=== PATIENT | male | born 1945 | race Hispanic/Latino ===

== ENCOUNTER 2020-02-03 21:49 | Emergency (ER) | payer OTHER ==
[~2020-02-03 21:49] MED LIST: ASPI-1005 PO; ATOR40TA69 PO; CARV3.1262 PO; FURO20TA6 PO; LOSA50TA2 PO
[2020-02-03 22:16] LABS: BASOPHILS % (AUTO) 0.6 % (0.0-5.0); EOSINOPHILS % (AUTO) 4.8 % (0.0-8.0); HEMATOCRIT 31.3 % (42-54); LYMPHOCYTES % (AUTO) 20.8 % (21.0-51.0); MEAN CORPUSCULAR HEMOGLOBIN 33.9 pg (27.0-33.0); MEAN CORPUSCULAR HGB CONC 35.8 g/dL (32.0-36.0); MEAN CORPUSCULAR VOLUME 94.8 fL (79-99); MONOCYTES % (AUTO) 8.2 % (3.0-13.0); NEUTROPHILS % (AUTO) 65.3 % (40.0-77.0); PLATELET COUNT (AUTO) 112 K/uL (130-400); RED CELL DISTRIBUTION WIDTH 12.5 % (11.0-15.5); WHITE BLOOD COUNT (AUTO) 6.2 K/uL (4.8-10.8)
[2020-02-03 22:33] LABS: CREATININE 1.9 mg/dL (0.5-1.5); INR 0.99 (0.85-1.15); PARTIAL THROMBOPLASTIN TIME 31.5 SEC (26.3-35.5); POTASSIUM 3.8 mmol/L (3.5-5.1); PROTHROMBIN TIME 10.7 SEC (9.6-11.6)
[2020-02-03 22:38] LABS: ALBUMIN 3.3 g/dL (3.5-5.0); BILIRUBIN,TOTAL 0.3 mg/dL (0.2-1.0); TOTAL PROTEIN, SERUM 6.6 g/dL (6.0-8.3)
[2020-02-03 22:45] LABS: B-TYPE NATRIURETIC PEPTIDE 306 pg/mL (0-100)
[2020-02-03] MEDS ORDERED: METHYLPREDNISOLONE SOD SUCC 125MG/2ML VIAL ONE (22:52)
[2020-02-03] MEDS ORDERED: IPRATROPIUM/ALBUTEROL SULFATE 3 ML SOLUTION IH ONE (23:07)
== END 2020-02-04 00:12 | disposition home or self-care (01) ==
LOC: EDH 21:49
DX: J44.1 Chronic obstructive pulmonary disease with (acute) exacerbation (principal); E11.9 Type 2 diabetes mellitus without complications; I10 Essential (primary) hypertension; E78.00 Pure hypercholesterolemia, unspecified; F41.9 Anxiety disorder, unspecified; F32.9 Major depressive disorder, single episode, unspecified; I25.2 Old myocardial infarction; Z87.891 Personal history of nicotine dependence
CPT/HCPCS: 36415; 71045; 80053; 82550; 83880; 84484; 85025; 85610; 85730; 93005; 94640; 96374; 99285; J2930

== ENCOUNTER 2022-12-21 13:07 | Emergency (ER) | payer OTHER ==
[~2022-12-21] VITALS: Ht 177.8 cm; Wt 75.3 kg
[2022-12-21] MEDS ORDERED: 0.9%NACL 1000ML 1,000 ML IV ONE (14:00)
[2022-12-21 14:24] LABS: BASOPHILS % (AUTO) 0.5 % (0.0-5.0); EOSINOPHILS % (AUTO) 8.3 % (0.0-8.0); HEMATOCRIT 33.8 % (42-54); LYMPHOCYTES % (AUTO) 27.6 % (21.0-51.0); MEAN CORPUSCULAR HEMOGLOBIN 32.1 pg (27.0-33.0); MEAN CORPUSCULAR HGB CONC 33.4 g/dL (32.0-36.0); MONOCYTES % (AUTO) 7.6 % (3.0-13.0); NEUTROPHILS % (AUTO) 55.5 % (40.0-77.0); PLATELET COUNT (AUTO) 109 K/uL (130-400); RED BLOOD CELL COUNT(AUTO) 3.52 MIL/uL (4.50-6.20); RED CELL DISTRIBUTION WIDTH 12.1 % (11.0-15.5); WHITE BLOOD COUNT (AUTO) 5.6 K/uL (4.8-10.8)
[2022-12-21 14:34] LABS: CREATININE 1.9 mg/dL (0.5-1.5); POTASSIUM 4.2 mmol/L (3.5-5.1)
[2022-12-21 14:38] LABS: INR 1.04 (0.85-1.15); PROTHROMBIN TIME 11.3 SEC (9.6-11.6)
[2022-12-21 14:40] LABS: PARTIAL THROMBOPLASTIN TIME 30.2 SEC (26.3-35.5)
[2022-12-21 14:42] LABS: B-TYPE NATRIURETIC PEPTIDE 226 pg/mL (0-100)
[2022-12-21 14:43] LABS: ALBUMIN 3.6 g/dL (3.5-5.0); TOTAL PROTEIN, SERUM 6.7 g/dL (6.0-8.3)
[2022-12-21] MEDS ORDERED: IOHEXOL 350 MG/ML 100ML INFUS..BTL IV ONE (16:10)
[2022-12-21 18:24] VITALS: BP 122/68
== END 2022-12-21 18:35 | disposition home or self-care (01) ==
LOC: EDH 13:07
DX: H53.8 Other visual disturbances (principal); I10 Essential (primary) hypertension; E78.00 Pure hypercholesterolemia, unspecified; E11.9 Type 2 diabetes mellitus without complications; I48.91 Unspecified atrial fibrillation; Z79.899 Other long term (current) drug therapy
CPT/HCPCS: 99285; 70496; 96360; 92610; 71045; 82550; 83721; 84484; 80053; 83880; 85025; 85610; 85730; 36415; 70498; 93005; 70450; J7030; Q9967

== ENCOUNTER 2023-08-22 12:32 | Inpatient (IN) | payer OTHER ==
[~2023-08-22] VITALS: Ht 167.6 cm; Wt 68.8 kg
[~2023-08-22 12:32] MED LIST changes: +AMIODARONE 150MG VIAL IV ONE; +APIX5TAB PO; -ASPI-1005 PO; -ATOR40TA69 PO; +CACL 1GM SYG IVP ONE; -CARV3.1262 PO; +CYAN100T45 PO; +EMPA10TA PO; +EPINEPHRINE 1MG/10ML(1:10,000) 0.1 MG/ML SYG IVP ONE; +ETOMIDATE 20MG VIAL IVP ONE; +FURO20TA4 PO; -FURO20TA6 PO; +GABA-529 PO; +LIDOCAINE PF 100MG/5ML (2%) SYRINGE 5ML IVP ONE; +LINA5TAB PO; -LOSA50TA2 PO; +LURA20TA PO; +LURA40TA4 PO; +METO-408 PO; +METO25TA6 PO; +POTA-364 PO; +ROSU20TA73 PO; +ROSU40TA21 PO; +SODIUM BICARB 8.4% 50ML SYRINGE IVP ONE; +SUCCINYLCHOLINE CHLORIDE 20 MG/ML 10 ML VIAL IVP ONE
[2023-08-22 14:08] LABS: BASOPHILS # (AUTO) 0.02 K/uL (0.00-0.20); BASOPHILS % (AUTO) 0.2 % (0.0-5.0); EOSINOPHILS # (AUTO) 0.04 K/uL (0.00-0.70); EOSINOPHILS % (AUTO) 0.5 % (0.0-8.0); HEMATOCRIT 43.3 % (42-54); IMMATURE GRANULOCYTE ABSOLUTE 0.04 K/uL (0-1); LYMPHOCYTES # (AUTO) 1.1 K/uL (1.0-4.8); LYMPHOCYTES % (AUTO) 13.8 % (21.0-51.0); MEAN CORPUSCULAR HGB CONC 30.9 g/dL (32.0-36.0); MEAN CORPUSCULAR VOLUME 100.2 fL (79-99); MONOCYTES # (AUTO) 0.3 K/uL (0.1-1.0); MONOCYTES % (AUTO) 3.3 % (3.0-13.0); NEUTROPHILS # (AUTO) 6.6 K/uL (1.8-7.7); NEUTROPHILS % (AUTO) 81.7 % (40.0-77.0); PLATELET COUNT (AUTO) 195 K/uL (130-400); RED BLOOD CELL COUNT(AUTO) 4.32 MIL/uL (4.50-6.20); RED CELL DISTRIBUTION WIDTH 18.5 % (11.0-15.5); WHITE BLOOD COUNT (AUTO) 8.1 K/uL (4.8-10.8)
[2023-08-22 14:37] LABS: B-TYPE NATRIURETIC PEPTIDE 3300 pg/mL (0-100)
[2023-08-22 14:45] LABS: ALBUMIN 2.6 g/dL (3.5-5.0); BILIRUBIN,TOTAL 1.8 mg/dL (0.2-1.0); CREATININE 1.6 mg/dL (0.5-1.5); POTASSIUM 4.4 mmol/L (3.5-5.1); TOTAL PROTEIN, SERUM 8.7 g/dL (6.0-8.3)
[2023-08-22] MEDS ORDERED: ASPIRIN 325MG EC TAB PO ONE (15:00)
[2023-08-22] MEDS ORDERED: FUROSEMIDE 20MG VIAL IV ONE (15:00)
[2023-08-22] MEDS ORDERED: LACTULOSE 20 GM/30 ML UDCUP PO PRN (17:00)
[2023-08-22] MEDS ORDERED: GUAIFENESIN-DM 200/20 MG 10 ML PO PRN (17:00)
[2023-08-22] MEDS ORDERED: ONDANSETRON 4MG INJ IV PRN (17:00)
[2023-08-22] MEDS ORDERED: ACETAMINOPHEN WITH CODEINE 1 TAB TAB PO PRN (17:00)
[2023-08-22] MEDS ORDERED: DIPHENHYDRAMINE HCL 25 MG CAPSULE PO PRN (17:00)
[2023-08-22] MEDS ORDERED: MAG/ALUM/SIMETH 30 ML UDCUP PO PRN (17:00)
[2023-08-22] MEDS ORDERED: NITROGLYCERIN 0.4 MG SL TAB SL PRN (17:00)
[2023-08-22] MEDS ORDERED: ACETAMINOPHEN 325 MG TAB PO PRN (17:00)
[2023-08-22] MEDS ORDERED: GLIP10TA9 PO (17:22)
[2023-08-22] MEDS ORDERED: SPIR25TA6 PO (17:22)
[2023-08-22 17:29] LABS: HEMOGLOBIN A1C 7.4 % (4.0-6.0)
[2023-08-22] MEDS ORDERED: GLUCAGON 1MG KIT 1 MG ML IM PRN (17:30)
[2023-08-22 18:23] LABS: APPEARANCE,URINE CLEAR (CLEAR); BILIRUBIN,URINE NEGATIVE (NEGATIVE); COLOR,URINE LIGHT-YELLOW (YELLOW); GLUCOSE, URINE (UA) >=1000 mg/dL (NEGATIVE); KETONES,URINE 5 mg/dL (NEGATIVE); LEUKOCYTE ESTERASE ,URINE NEGATIVE Leu/uL (NEGATIVE); NITRATE,URINE NEGATIVE (NEGATIVE); OCCULT BLOOD,URINE NEGATIVE (NEGATIVE); PH,URINE 6.5 (5.0-8.0); PROTEIN,URINE NEGATIVE (NEGATIVE)
[2023-08-22 18:24] LABS: ADD UA MICROSCOPIC YES
[2023-08-22 18:25] LABS: RBC,URINE 0-1 /HPF (0-1); SQUAMOUS EPITHELIAL CELL,UR RARE /HPF (0-2); WBC,URINE 0-1 /HPF (0-1)
[2023-08-22] MEDS ORDERED: NON-FORMULARY MEDICATION 1 EACH (Potassium Chloride 20 MEQ) PO SCH (21:00)
[2023-08-22] MEDS: INSULIN HUMULIN R 100 UNIT/ML 3ML SQ SCH (21:00)
[2023-08-22] MEDS: GABAPENTIN 100 MG CAPSULE PO SCH (21:34)
[2023-08-22] MEDS: KCL 20 MEQ ERTAB PO SCH (21:34)
[2023-08-22] MEDS: FAMOTIDINE 20MG VIAL IV SCH (21:35)
[2023-08-22] MEDS: FUROSEMIDE 40MG VIAL IVP SCH (21:35)
[2023-08-22] MEDS: APIXABAN 5 MG TABLET PO SCH (21:35)
[2023-08-23] MEDS: INSULIN HUMULIN R 100 UNIT/ML 3ML SQ SCH ×4 (07:30→21:06)
[2023-08-23] MEDS: GLIPIZIDE 5 MG TABLET PO SCH (09:54)
[2023-08-23] MEDS: KCL 20 MEQ ERTAB PO SCH ×2 (09:54→21:03)
[2023-08-23] MEDS: GABAPENTIN 100 MG CAPSULE PO SCH ×3 (09:55→21:04)
[2023-08-23] MEDS: FUROSEMIDE 40MG VIAL IVP SCH (09:55)
[2023-08-23] MEDS: LINAGLIPTIN 5 MG TABLET PO SCH (09:55)
[2023-08-23] MEDS: METOPROLOL SUCCINATE 25 MG TAB.SR.24H PO SCH (09:55)
[2023-08-23] MEDS: SPIRONOLACTONE 25 MG TAB PO SCH (09:55)
[2023-08-23] MEDS: APIXABAN 5 MG TABLET PO SCH ×2 (09:56→21:04)
[2023-08-23 10:29] LABS: CREATININE 1.6 mg/dL (0.5-1.5); POTASSIUM 3.9 mmol/L (3.5-5.1)
[2023-08-23] MEDS ORDERED: CIPROFLOXACIN HCL 0.3% 2.5ML DROPS OU SCH (12:00)
[2023-08-23] MEDS: MOXIFLOXACIN HCL 0.5% 3ML DROPS OU SCH ×2 (12:15→21:07)
[2023-08-23] MEDS: MILRINONE-D5W 20 MG/100 ML 100 ML IV SCH (13:29)
[2023-08-23] MEDS ORDERED: MOXIFLOXACIN HCL 0.5% 3ML DROPS OU SCH ×2 (14:00)
[2023-08-23 20:00] VITALS: BP 97/58; PULSE 94; RESP 22; O2SAT 92
[2023-08-23] MEDS: FAMOTIDINE 20MG VIAL IV SCH (21:03)
[2023-08-23] MEDS: FUROSEMIDE 20MG VIAL IVP SCH (21:03)
[2023-08-24] VITALS (9 sets, daily range): BP systolic 97–130; BP diastolic 40–85; PULSE 60–80; RESP 14–19; O2SAT 95–97
[2023-08-24] MEDS: INSULIN HUMULIN R 100 UNIT/ML 3ML SQ SCH ×4 (07:30→21:16)
[2023-08-24] MEDS: MOXIFLOXACIN HCL 0.5% 3ML DROPS OU SCH ×3 (09:00→21:21)
[2023-08-24] MEDS: KCL 20 MEQ ERTAB PO SCH ×2 (09:00→21:14)
[2023-08-24] MEDS: FUROSEMIDE 20MG VIAL IVP SCH (09:51)
[2023-08-24] MEDS: SPIRONOLACTONE 25 MG TAB PO SCH (09:51)
[2023-08-24] MEDS: LINAGLIPTIN 5 MG TABLET PO SCH (09:51)
[2023-08-24] MEDS: METOPROLOL SUCCINATE 25 MG TAB.SR.24H PO SCH (09:51)
[2023-08-24] MEDS: APIXABAN 5 MG TABLET PO SCH ×2 (09:51→21:14)
[2023-08-24] MEDS: EMPAGLIFLOZIN 10MG TABLET PO SCH (09:51)
[2023-08-24] MEDS: GABAPENTIN 100 MG CAPSULE PO SCH ×3 (09:51→21:15)
[2023-08-24] MEDS: GLIPIZIDE 5 MG TABLET PO SCH (09:52)
[2023-08-24 09:59] LABS: HEMATOCRIT 32.8 % (42-54); MEAN CORPUSCULAR HEMOGLOBIN 32.3 pg (27.0-33.0); MEAN CORPUSCULAR HGB CONC 31.7 g/dL (32.0-36.0); MEAN CORPUSCULAR VOLUME 101.9 fL (79-99); RED BLOOD CELL COUNT(AUTO) 3.22 MIL/uL (4.50-6.20); RED CELL DISTRIBUTION WIDTH 17.5 % (11.0-15.5); WHITE BLOOD COUNT (AUTO) 9.5 K/uL (4.8-10.8)
[2023-08-24 10:20] LABS: CREATININE 1.9 mg/dL (0.5-1.5); POTASSIUM 4.2 mmol/L (3.5-5.1)
[2023-08-24 10:28] LABS: ALBUMIN 2.1 g/dL (3.5-5.0); MAGNESIUM 2.8 mg/dL (1.80-2.40); TOTAL PROTEIN, SERUM 6.6 g/dL (6.0-8.3)
[2023-08-24] MEDS: MILRINONE-D5W 20 MG/100 ML 100 ML IV SCH (12:13)
[2023-08-24] MEDS: FAMOTIDINE 20MG VIAL IV SCH (21:14)
[2023-08-25] VITALS (78 sets, daily range): BP systolic 32–170; BP diastolic 15–97; PULSE 65–121; RESP 16–29; O2SAT 95–100
[2023-08-25 03:58] LABS: HEMATOCRIT 33.5 % (42-54); MEAN CORPUSCULAR HEMOGLOBIN 31.4 pg (27.0-33.0); MEAN CORPUSCULAR HGB CONC 30.7 g/dL (32.0-36.0); MEAN CORPUSCULAR VOLUME 102.1 fL (79-99); RED BLOOD CELL COUNT(AUTO) 3.28 MIL/uL (4.50-6.20); RED CELL DISTRIBUTION WIDTH 17.4 % (11.0-15.5); WHITE BLOOD COUNT (AUTO) 8.2 K/uL (4.8-10.8)
[2023-08-25 04:18] LABS: ALBUMIN 2.1 g/dL (3.5-5.0); BILIRUBIN,TOTAL 0.7 mg/dL (0.2-1.0); POTASSIUM 4.1 mmol/L (3.5-5.1); TOTAL PROTEIN, SERUM 6.7 g/dL (6.0-8.3)
[2023-08-25] MEDS: INSULIN HUMULIN R 100 UNIT/ML 3ML SQ SCH ×4 (05:45→20:19)
[2023-08-25] MEDS: GLIPIZIDE 5 MG TABLET PO SCH (07:30)
[2023-08-25] MEDS: METOPROLOL SUCCINATE 25 MG TAB.SR.24H PO SCH (08:48)
[2023-08-25] MEDS: LINAGLIPTIN 5 MG TABLET PO SCH (08:48)
[2023-08-25] MEDS: KCL 20 MEQ ERTAB PO SCH (08:48)
[2023-08-25] MEDS: EMPAGLIFLOZIN 10MG TABLET PO SCH (08:49)
[2023-08-25] MEDS: GABAPENTIN 100 MG CAPSULE PO SCH ×2 (08:49→14:00)
[2023-08-25] MEDS: APIXABAN 5 MG TABLET PO SCH (08:49)
[2023-08-25] MEDS: SPIRONOLACTONE 25 MG TAB PO SCH (08:49)
[2023-08-25] MEDS: MOXIFLOXACIN HCL 0.5% 3ML DROPS OU SCH ×3 (08:51→20:19)
[2023-08-25] MEDS ORDERED: FUROSEMIDE 40 MG TABLET PO SCH (09:00)
[2023-08-25] MEDS ORDERED: NOREPINEPHRIN 4MG/NS 250ML 250 ML IV ONE (13:20)
[2023-08-25 13:48] LABS: ABG BASE EXCESS -0.1 mmol/L (-2.0-3.0); ABG HCO3 28.5 mmol/L (21.0-28.0); ABG OXYGEN SATURATION 93.7 % (95.0-99.0); ABG PCO2 68 mmHg (35-48); ABG PH 7.238 (7.35-7.450); CARBON MONOXIDE 1.1; HHb 6.2; PO2, ARTERIAL BG 89.8 mmHg (83.0-108.0); VENT MODE, BG AC (ROOM AIR)
[2023-08-25] MEDS ORDERED: FENTANYL 1000MCG+NS 100ML 100 ML IV ONE (13:52)
[2023-08-25] MEDS ORDERED: SODIUM BICARB 50MEQ 50ML VIAL 100 ML ONE (14:00)
[2023-08-25] MEDS ORDERED: NOREPINEPHRIN 8MG/250ML NS 250 ML IV ONE ×2 (14:14→16:53)
[2023-08-25 14:41] LABS: BASOPHILS # (AUTO) 0.03 K/uL (0.00-0.20); BASOPHILS % (AUTO) 0.4 % (0.0-5.0); EOSINOPHILS # (AUTO) 0.02 K/uL (0.00-0.70); EOSINOPHILS % (AUTO) 0.2 % (0.0-8.0); HEMATOCRIT 25.5 % (42-54); IMMATURE GRANULOCYTE ABSOLUTE 0.18 K/uL (0-1); LYMPHOCYTES # (AUTO) 2.7 K/uL (1.0-4.8); LYMPHOCYTES % (AUTO) 33.1 % (21.0-51.0); MEAN CORPUSCULAR HEMOGLOBIN 31.4 pg (27.0-33.0); MEAN CORPUSCULAR HGB CONC 30.2 g/dL (32.0-36.0); MEAN CORPUSCULAR VOLUME 104.1 fL (79-99); MONOCYTES # (AUTO) 0.4 K/uL (0.1-1.0); MONOCYTES % (AUTO) 4.8 % (3.0-13.0); NEUTROPHILS # (AUTO) 4.8 K/uL (1.8-7.7); NEUTROPHILS % (AUTO) 59.3 % (40.0-77.0); PLATELET COUNT (AUTO) 94 K/uL (130-400); RED BLOOD CELL COUNT(AUTO) 2.45 MIL/uL (4.50-6.20); RED CELL DISTRIBUTION WIDTH 17.7 % (11.0-15.5); WHITE BLOOD COUNT (AUTO) 8.1 K/uL (4.8-10.8)
[2023-08-25 14:42] LABS: ALBUMIN 1.4 g/dL (3.5-5.0); BILIRUBIN,TOTAL 0.7 mg/dL (0.2-1.0); CREATININE 1.7 mg/dL (0.5-1.5); MAGNESIUM 2.2 mg/dL (1.80-2.40); POTASSIUM 3.7 mmol/L (3.5-5.1); TOTAL PROTEIN, SERUM 4.5 g/dL (6.0-8.3)
[2023-08-25 14:47] LABS: INR 1.57 (0.85-1.15); PROTHROMBIN TIME 17.7 SEC (9.6-11.6)
[2023-08-25 14:48] LABS: PARTIAL THROMBOPLASTIN TIME 34.3 SEC (26.3-35.5)
[2023-08-25 14:52] LABS: ABG BASE EXCESS -8.5 mmol/L (-2.0-3.0); ABG HCO3 18.2 mmol/L (21.0-28.0); ABG OXYGEN SATURATION 93.9 % (95.0-99.0); ABG PCO2 42 mmHg (35-48); DEVICE COMMENT ALINE; PO2, ARTERIAL BG 88.6 mmHg (83.0-108.0)
[2023-08-25] MEDS ORDERED: SODIUM BICARB 50MEQ 50ML VIAL 50 ML ONE (14:55)
[2023-08-25] MEDS ORDERED: EPINEPHRINE PF 1MG (1:1,000) 10 MG in 0.9% NACL 250ML 250 ML IV SCH (15:00)
[2023-08-25] MEDS ORDERED: AMIODARONE 900MG VIAL 360 MG in DEXTROSE 5%-WATER 200 ML IV SCH (15:00)
[2023-08-25] MEDS ORDERED: SODIUM BICARB 50MEQ 50ML VIAL IV ONE (15:00)
[2023-08-25] MEDS ORDERED: NOREPINEPHRINE BITARTRATE 32 MG in 0.9% NACL 250ML 250 ML IV SCH (15:00)
[2023-08-25] MEDS: AMIODARONE 900MG VIAL 540 MG in DEXTROSE 5%-WATER 300 ML IV SCH ×2 (15:00→21:27)
[2023-08-25 15:06] LABS: THYROID STIMULATING HORMONE 3.18 uIU/mL (0.36-3.74)
[2023-08-25] MEDS ORDERED: ARTIFICIAL TEARS 3.5 GM OINTMENT OU ONE (16:58)
[2023-08-25] MEDS: CHLORHEXIDINE GLUCONATE 15 ML MOUTHWASH MM SCH (17:00)
[2023-08-25 17:07] LABS: ABG BASE EXCESS 2.5 mmol/L (-2.0-3.0); ABG HCO3 27.1 mmol/L (21.0-28.0); ABG PCO2 42 mmHg (35-48); CARBON MONOXIDE 0.8; DEVICE COMMENT ALINE; PO2, ARTERIAL BG 96.8 mmHg (83.0-108.0); VENT MODE, BG AC (ROOM AIR)
[2023-08-25] MEDS: ZOSYN 3.375GM +NS 50ML IV SCH (17:07)
[2023-08-25] MEDS: FAMOTIDINE 20MG VIAL IV SCH (20:15)
[2023-08-25 20:20] LABS: ADD UA MICROSCOPIC YES; APPEARANCE,URINE CLOUDY (CLEAR); BILIRUBIN,URINE NEGATIVE (NEGATIVE); COLOR,URINE LIGHT-ORANGE (YELLOW); GLUCOSE, URINE (UA) >=1000 mg/dL (NEGATIVE); KETONES,URINE NEGATIVE (NEGATIVE); LEUKOCYTE ESTERASE ,URINE 250 Leu/uL (NEGATIVE); NITRATE,URINE NEGATIVE (NEGATIVE); OCCULT BLOOD,URINE LARGE (NEGATIVE); PH,URINE 6.5 (5.0-8.0); PROTEIN,URINE 70 mg/dL (NEGATIVE); UROBILINOGEN,URINE 3 mg/dL (0.2-1.0)
[2023-08-25 20:21] LABS: BACTERIA,URINE RARE /HPF (None Seen); MUCUS,URINE RARE LPF (None Seen); NON-SQUAMOUS EPITHELIAL CELL 3 /HPF (0-2); OTHER CASTS, URINE 3 /LPF (None Seen); RBC,URINE TNTC /HPF (0-1); SQUAMOUS EPITHELIAL CELL,UR FEW /HPF (0-2); UNCLASSIFIED CRYSTAL 4 /HPF (None Seen); WBC CLUMP FEW /HPF (0-1); WBC,URINE 26-50 /HPF (0-1); YEAST,URINE BUDDING FEW /HPF (None Seen)
[2023-08-25] MEDS ORDERED: MIDAZOLAM 50MG-0.9% NS 50ML 1 ML in MIDAZOLAM 50MG-0.9% NS 50ML 50 ML IV SCH (20:30)
[2023-08-25] MEDS ORDERED: FENTANYL CITRATE PF 0.05 MG/ML 1,000 MCG in 0.9%NACL 100ML 100 ML IV PRN (20:30)
[2023-08-25] MEDS: ARTIFICIAL TEARS 3.5 GM OINTMENT OU SCH (20:40)
[2023-08-25] MEDS: MIDAZOLAM 50MG-0.9% NS 50ML 50 ML IV SCH (20:46)
[2023-08-25] MEDS: FENTANYL 1000MCG+NS 100ML 100 ML IV SCH (20:47)
[2023-08-25] MEDS ORDERED: ENOXAPARIN SODIUM 60 MG/0.6 ML SQ ONE (21:00)
[2023-08-26] VITALS (123 sets, daily range): BP systolic 51–193; BP diastolic 35–86; PULSE 64–130; RESP 18–29; TEMP 99.6–100.7; O2SAT 60–100
[2023-08-26] MEDS: CHLORHEXIDINE GLUCONATE 15 ML MOUTHWASH MM SCH ×5 (01:04→22:29)
[2023-08-26] MEDS: ZOSYN 3.375GM +NS 50ML IV SCH ×3 (01:04→17:12)
[2023-08-26] MEDS: PHENYLEPHRINE HCL 50 MG in 0.9% NACL 250ML 250 ML IV PRN ×3 (04:10→20:53)
[2023-08-26 04:20] LABS: BASOPHILS # (AUTO) 0.04 K/uL (0.00-0.20); BASOPHILS % (AUTO) 0.2 % (0.0-5.0); HEMATOCRIT 30.4 % (42-54); IMMATURE GRANULOCYTE ABSOLUTE 0.11 K/uL (0-1); LYMPHOCYTES # (AUTO) 2.2 K/uL (1.0-4.8); LYMPHOCYTES % (AUTO) 12.9 % (21.0-51.0); MEAN CORPUSCULAR HEMOGLOBIN 31.7 pg (27.0-33.0); MEAN CORPUSCULAR HGB CONC 32.2 g/dL (32.0-36.0); MEAN CORPUSCULAR VOLUME 98.4 fL (79-99); MONOCYTES # (AUTO) 0.8 K/uL (0.1-1.0); MONOCYTES % (AUTO) 4.9 % (3.0-13.0); NEUTROPHILS # (AUTO) 13.9 K/uL (1.8-7.7); NEUTROPHILS % (AUTO) 81.4 % (40.0-77.0); PLATELET COUNT (AUTO) 163 K/uL (130-400); RED BLOOD CELL COUNT(AUTO) 3.09 MIL/uL (4.50-6.20); RED CELL DISTRIBUTION WIDTH 18.5 % (11.0-15.5); WHITE BLOOD COUNT (AUTO) 17.1 K/uL (4.8-10.8)
[2023-08-26 04:37] LABS: ALBUMIN 1.8 g/dL (3.5-5.0); BILIRUBIN,TOTAL 1.6 mg/dL (0.2-1.0); CREATININE 2.1 mg/dL (0.5-1.5); MAGNESIUM 2.4 mg/dL (1.80-2.40); POTASSIUM 3.4 mmol/L (3.5-5.1); TOTAL PROTEIN, SERUM 6.1 g/dL (6.0-8.3)
[2023-08-26] MEDS ORDERED: CALCIUM GLUC 1GM/10ML VIAL ONE ×3 (04:52→22:28)
[2023-08-26] MEDS: CALCIUM GLUC 1GM 1 GM in 0.9%NACL 100ML 100 ML IV SCH ×3 (04:54→22:30)
[2023-08-26] MEDS ORDERED: POTASSIUM CHLORIDE 10MEQ/100ML 100 ML IV PRN (05:00)
[2023-08-26] MEDS ORDERED: MAGNESIUM 2GM PREMIX 50ML 50 ML IV PRN (05:00)
[2023-08-26] MEDS: MIDAZOLAM 50MG-0.9% NS 50ML 50 ML IV SCH (05:07)
[2023-08-26] MEDS ORDERED: POTASSIUM CHLORIDE 10% ELIXIR 20 MEQ/15 ML UDCUP PO ONE (05:30)
[2023-08-26] MEDS: DEXTROSE 50%-WATER 50 ML DISP.SYRIN IV PRN ×3 (06:02→16:56)
[2023-08-26] MEDS: INSULIN HUMULIN R 100 UNIT/ML 3ML SQ SCH ×4 (06:04→20:41)
[2023-08-26 07:17] LABS: ABG BASE EXCESS 6.6 mmol/L (-2.0-3.0); ABG HCO3 26.3 mmol/L (21.0-28.0); ABG OXYGEN SATURATION 99.9 % (95.0-99.0); ABG PCO2 26 mmHg (35-48); ABG PH 7.632 (7.35-7.450); PO2, ARTERIAL BG 388.7 mmHg (83.0-108.0); VENT MODE, BG AC (ROOM AIR)
[2023-08-26] MEDS ORDERED: SODIUM BICARB 50MEQ 50ML VIAL 0 ML ONE (07:19)
[2023-08-26] MEDS ORDERED: LIDOCAINE 2G/250ML 250 ML IV PRN (08:00)
[2023-08-26] MEDS ORDERED: AMIODARONE 150MG VIAL 150 MG in DEXTROSE 5%-WATER 100 ML IV SCH (08:00)
[2023-08-26 08:42] LABS: MAGNESIUM 2.4 mg/dL (1.80-2.40); PHOSPHORUS 4.6 mg/dL (2.5-4.9)
[2023-08-26 09:19] LABS: ABG BASE EXCESS 2.1 mmol/L (-2.0-3.0); ABG HCO3 24.4 mmol/L (21.0-28.0); ABG OXYGEN SATURATION 99.8 % (95.0-99.0); ABG PCO2 32 mmHg (35-48); ABG PH 7.504 (7.35-7.450); PO2, ARTERIAL BG 304.8 mmHg (83.0-108.0); VENT MODE, BG AC (ROOM AIR)
[2023-08-26] MEDS: MOXIFLOXACIN HCL 0.5% 3ML DROPS OU SCH ×3 (09:25→20:48)
[2023-08-26] MEDS: VASOPRESSIN 20 UNITS in 0.9%NACL 100ML 100 ML IV SCH ×2 (11:50→22:22)
[2023-08-26] MEDS: AMIODARONE 900MG VIAL 540 MG in DEXTROSE 5%-WATER 300 ML IV SCH (14:07)
[2023-08-26] MEDS: FAMOTIDINE 20MG VIAL IV SCH (20:47)
[2023-08-26] MEDS ORDERED: AMIODARONE 200 MG TABLET PO SCH (21:00)
[2023-08-26] MEDS: ARTIFICIAL TEARS 3.5 GM OINTMENT OU SCH (21:06)
[2023-08-26 21:44] LABS: ABG BASE EXCESS -15.6 mmol/L (-2.0-3.0); ABG HCO3 11.7 mmol/L (21.0-28.0); ABG OXYGEN SATURATION 92.6 % (95.0-99.0); ABG PCO2 33 mmHg (35-48); ABG PH 7.169 (7.35-7.450); CARBON MONOXIDE 0.5; HHb 7.3; PO2, ARTERIAL BG 83.6 mmHg (83.0-108.0); VENT MODE, BG AC-VC (ROOM AIR)
[2023-08-26] MEDS ORDERED: SODIUM BICARB 50MEQ 50ML VIAL IV STA (21:55)
[2023-08-26] MEDS ORDERED: SODIUM BICARB 50MEQ 50ML VIAL 200 ML ONE (21:59)
[2023-08-26] MEDS: SODIUM BICARB 50MEQ 50ML VIAL 150 MEQ in DEXTROSE 5%-WATER 1,000 ML IVPB SCH (22:17)
[2023-08-26] MEDS: FENTANYL 1000MCG+NS 100ML 100 ML IV SCH (23:24)
[2023-08-27] VITALS (29 sets, daily range): BP systolic 0–127; BP diastolic 0–65; PULSE 0–99; RESP 0–22; O2SAT 100
[2023-08-27] MEDS: NOREPINEPHRINE 16MG/NS 250ML PREMIX IV SCH ×2 (00:24→04:15)
[2023-08-27] MEDS: ZOSYN 3.375GM +NS 50ML IV SCH (01:00)
[2023-08-27] MEDS: PHENYLEPHRINE HCL 50 MG in 0.9% NACL 250ML 250 ML IV PRN ×2 (01:57→05:37)
[2023-08-27] MEDS: CHLORHEXIDINE GLUCONATE 15 ML MOUTHWASH MM SCH (04:15)
[2023-08-27 04:18] LABS: BASOPHILS # (AUTO) 0.04 K/uL (0.00-0.20); BASOPHILS % (AUTO) 0.2 % (0.0-5.0); HEMATOCRIT 33.4 % (42-54); IMMATURE GRANULOCYTE ABSOLUTE 0.47 K/uL (0-1); LYMPHOCYTES # (AUTO) 0.8 K/uL (1.0-4.8); LYMPHOCYTES % (AUTO) 3.8 % (21.0-51.0); MEAN CORPUSCULAR HEMOGLOBIN 32.6 pg (27.0-33.0); MEAN CORPUSCULAR HGB CONC 27.8 g/dL (32.0-36.0); MEAN CORPUSCULAR VOLUME 117.2 fL (79-99); MONOCYTES % (AUTO) 4.4 % (3.0-13.0); NEUTROPHILS # (AUTO) 19.9 K/uL (1.8-7.7); NEUTROPHILS % (AUTO) 89.5 % (40.0-77.0); NUCLEATED RED BLOOD CELLS 0.2 % (0.0-0.19); PLATELET COUNT (AUTO) 99 K/uL (130-400); RED BLOOD CELL COUNT(AUTO) 2.85 MIL/uL (4.50-6.20); RED CELL DISTRIBUTION WIDTH 19.9 % (11.0-15.5); WHITE BLOOD COUNT (AUTO) 22.3 K/uL (4.8-10.8)
[2023-08-27] MEDS: MIDAZOLAM 50MG-0.9% NS 50ML 50 ML IV SCH (04:32)
[2023-08-27 04:52] LABS: ALBUMIN 1.5 g/dL (3.5-5.0); BILIRUBIN,TOTAL 4.5 mg/dL (0.2-1.0); CREATININE 3.4 mg/dL (0.5-1.5); MAGNESIUM 2.7 mg/dL (1.80-2.40); POTASSIUM 4.9 mmol/L (3.5-5.1); TOTAL PROTEIN, SERUM 5.3 g/dL (6.0-8.3)
[2023-08-27] MEDS: SODIUM BICARB 50MEQ 50ML VIAL 150 MEQ in DEXTROSE 5%-WATER 1,000 ML IVPB SCH (05:46)
== END 2023-08-27 06:25 | DRG 208 ==
LOC: EDH 12:32 → EDHIP 17:00 → 2DH 08-23 20:44 → 2CV 08-25 13:59 → 2BH 08-26 02:54
PROVIDERS: ADMIT Internal Medicine; ATTEND Internal Medicine
PROC: 06HY33Z Insertion of Infusion Device into Lower Vein, Percutaneous Approach (ICD-10-PCS; principal; 2023-08-25)
PROC: B54MZZA Ultrasonography of Right Upper Extremity Veins, Guidance (ICD-10-PCS; 2023-08-25)
PROC: 0BH17EZ Insertion of Endotracheal Airway into Trachea, Via Natural or Artificial Opening (ICD-10-PCS; 2023-08-25)
PROC: 5A1945Z Respiratory Ventilation, 24-96 Consecutive Hours (ICD-10-PCS; 2023-08-25)
PROC: 03HY32Z Insertion of Monitoring Device into Upper Artery, Percutaneous Approach (ICD-10-PCS; 2023-08-25)
DX: J96.90 Respiratory failure, unspecified, unspecified whether with hypoxia or hypercapnia (principal); E43 Unspecified severe protein-calorie malnutrition; I50.43 Acute on chronic combined systolic (congestive) and diastolic (congestive) heart failure; I13.0 Hypertensive heart and chronic kidney disease with heart failure and stage 1 through stage 4 chronic kidney disease, or unspecified chronic kidney disease; I45.2 Bifascicular block; I47.20 Ventricular tachycardia, unspecified; I48.20 Chronic atrial fibrillation, unspecified; N17.9 Acute kidney failure, unspecified; E11.22 Type 2 diabetes mellitus with diabetic chronic kidney disease; M79.89 Other specified soft tissue disorders; I25.5 Ischemic cardiomyopathy; N18.32 Chronic kidney disease, stage 3b; E11.51 Type 2 diabetes mellitus with diabetic peripheral angiopathy without gangrene; E78.00 Pure hypercholesterolemia, unspecified; E83.51 Hypocalcemia; H10.89 Other conjunctivitis; I25.10 Atherosclerotic heart disease of native coronary artery without angina pectoris; I46.9 Cardiac arrest, cause unspecified; I48.0 Paroxysmal atrial fibrillation; Z66 Do not resuscitate; Z79.01 Long term (current) use of anticoagulants; Z79.4 Long term (current) use of insulin; Z79.84 Long term (current) use of oral hypoglycemic drugs; Z79.899 Other long term (current) drug therapy; Z95.1 Presence of aortocoronary bypass graft; Z95.810 Presence of automatic (implantable) cardiac defibrillator; Z68.24 Body mass index [BMI] 24.0-24.9, adult
CPT/HCPCS: 31500; 36415; 36600; 36680; 71045; 78582; 80048; 80053; 81001; 82330; 82435; 82550; 82803; 82947; 82948; 83036; 83605; 83735; 83880; 84100; 84132; 84145; 84295; 84443; 84484; 85018; 85025; 85027; 85378; 85610; 85730; 87040; 87071; 87088; 87205; 92950; 93005; 93308; 93970; 94002; 94003; 96374; 96375; 99291; A4344; A9540; A9558; B4082; C1751; G0378; J0171; J0282; J0330; J0610; J1650; J1815; J1940; J2001; J2260; J2371; J2543; J3010; J3480; J3490; J7050; J7060; J7070; A9900